=== PATIENT | female | born 1990 | race Two or more races ===

== ENCOUNTER 2016-04-04 07:51 | Day surgery (SDC) | payer OTHER ==
[~2016-04-04 07:51] MED LIST: IV START KIT ONE; LACTATED RINGERS 1,000 ML IV SCH; LACTATED RINGERS 1,000 ML ONE
[2016-04-04] MEDS ORDERED: PROPOFOL 20 ML IV ONE (10:04)
[2016-04-04 14:52] LABS: HELICOBACTER PYLORII DETECTION NEGATIVE (NEGATIVE)
--- NOTE | 2016-04-08 12:47 | SURGPATH ---
[facility] [address] [place] [id number] Patient Name: JANELLE JIANG MR#: [id number] : 1990 Gender: F Specimen #: [id number] Collected: 04/04/2016 Received: 04/05/2016 Reported: 04/08/2016 Submitting Phys: LUDWIG TORREZ Copy To Phys: [facility] MARILEE HUNTLEY Clinical History / Pre-Operative Diagnosis: EPIGASTRIC PAIN; HEARTBURN; NAUSEA; RULE OUT GASTRITIS, GIARDIA AND CELIAC SPRUE Specimen Source / Surgical Procedure Performed: #1-DUODENAL BIOPSY; #2-ANTRAL BIOPSY Interpretation: 1. DUODENUM, BIOPSY: - DUODENAL MUCOSA WITH FOCAL SUPERFICIAL GASTRIC METAPLASIA - SEE COMMENT 2. STOMACH, ANTRUM, BIOPSY: - NO DIAGNOSTIC ABNORMALITIES Comment: On part 1, gastric metaplasia can be seen as a feature of peptic duodenitis; however, other features of duodenitis are not seen, and the finding may simply represent chronic acid exposure. Electronically Signed Out Ivonne Gould M.D. Gross Description: #1 The specimen is received in a formalin filled container labeled with the patient's name and "duodenal biopsy". Two malcolm biopsies are 0.3 and 0.4 cm. Totally embedded in cassette #1. #2 The specimen is received in a formalin filled container labeled with the patient's name and "antral biopsy". Two malcolm biopsies are 0.3 and 0.5 cm. Totally embedded in cassette #2. Joyce Zavala Microscopic Description: Part 1: Sections show duodenal mucosa with no evidence of increased intraepithelial lymphocytes or active duodenitis . There is focal superficial gastric metaplasia. No giardia is seen. Part 2: Sections show gastric antral mucosa with overall intact architecture. No significant active or chronic inflammation is seen. No Helicobacter organisms are seen on routine stain. No dysplasia or malignancy is seen. 1: [id number] 2: 25823 K29.80 R10.13
== END 2016-04-04 11:05 | disposition home or self-care (01) ==
LOC: SDC 07:51
PROVIDERS: ATTEND Internal Medicine Gastroenterology
PROC: 0DB68ZX Excision of Stomach, Via Natural or Artificial Opening Endoscopic, Diagnostic (ICD-10-PCS; principal; 2016-04-04)
PROC: 0DB98ZX Excision of Duodenum, Via Natural or Artificial Opening Endoscopic, Diagnostic (ICD-10-PCS; principal; 2016-04-04)
DX: K25.9 Gastric ulcer, unspecified as acute or chronic, without hemorrhage or perforation (principal); R10.11 Right upper quadrant pain; R10.31 Right lower quadrant pain; R19.7 Diarrhea, unspecified; J45.909 Unspecified asthma, uncomplicated; F31.9 Bipolar disorder, unspecified; F41.9 Anxiety disorder, unspecified